=== PATIENT | female | born 1985 | race Caucasian/White ===

== ENCOUNTER 2020-10-03 17:11 | Emergency (ER) | payer SELFPAY | END 2020-10-03 17:50 | disposition home or self-care (01) | LOC: MADERS 17:11 | DX: Z04.6 Encounter for general psychiatric examination, requested by authority (principal); M79.7 Fibromyalgia; F17.210 Nicotine dependence, cigarettes, uncomplicated; Z79.899 Other long term (current) drug therapy ==